=== PATIENT | female | born 1995 | race Caucasian/White ===

== ENCOUNTER 2016-08-26 22:35 | Emergency (ER) | payer BC ==
[~2016-08-26] VITALS: Ht 162.6 cm; Wt 54.4 kg
--- NOTE | 2016-08-26 22:50 | NUR ---
20 YO FEMALE BB FRIEND. PT IS ALERT X 4, C/O FLANK PAIN, PT AMBULATED TO ER BED, SKIN WARM AND DRY, RR EVEN AND UNLABORED. AWAITING ORDERS FROM PROVIDER
[2016-08-26] MEDS ORDERED: ACETAMINOPHEN ES 500 MG TABLET PO ONE (23:00)
[2016-08-26] MEDS ORDERED: ONDANSETRON HCL/PF 4 MG/2 ML VIAL IV ONE (23:00)
[2016-08-26] MEDS ORDERED: IV NS 0.9% 1,000 ML BAG IV ONE (23:00)
[2016-08-26] MEDS ORDERED: ONDANSETRON HCL/PF 4 MG/2 ML VIAL ONE (23:02)
[2016-08-26] MEDS ORDERED: IV SET PRIMARY 1 EA INFUS.SET MC ONE (23:02)
[2016-08-26] MEDS ORDERED: IV NS 0.9% 1,000 ML ONE (23:02)
[2016-08-26] MEDS ORDERED: ACETAMINOPHEN ES 500 MG TABLET ONE (23:02)
[2016-08-26] MEDS ORDERED: MORPHINE SULFATE INJ 2 MG/ML DISP.SYRIN ONE (23:18)
[2016-08-26] MEDS ORDERED: MORPHINE SULFATE INJ 4 MG/ML DISP.SYRIN ONE (23:18)
[2016-08-26 23:30] LABS: BASOPHILS % (AUTO) 0.1 % (0.0-2.0); HEMATOCRIT 39 % (33-45); HEMOGLOBIN 13.1 g/dL (11.5-14.8); LYMPHOCYTES # (AUTO) 0.4 /CMM (0.8-4.8); LYMPHOCYTES % (AUTO) 5.8 % (20.0-44.0); MEAN CORPUSCULAR HEMOGLOBIN 28 PG (26.0-33.0); MEAN CORPUSCULAR HGB CONC 34 g/dl (31.0-36.0); MEAN CORPUSCULAR VOLUME 85 fL (82-100); MONOCYTES # (AUTO) 0.7 /CMM (0.1-1.30); MONOCYTES % (AUTO) 10.6 % (2.0-12.0); NEUTROPHILS # (AUTO) 5.2 /CMM (1.8-8.9); NEUTROPHILS % (AUTO) 83.5 % (43.0-81.0); PLATELET COUNT (AUTO) 191 /CMM (150-450); RDW COEFFICIENT OF VARIATION 13.5 (11.5-15.0); RED BLOOD CELL COUNT(AUTO) 4.61 MIL/uL (4.0-5.2); WHITE BLOOD COUNT (AUTO) 6.2 K/uL (4.3-11.0)
[2016-08-26] MEDS ORDERED: MORPHINE SULFATE INJ 2 MG/ML DISP.SYRIN IV ONE (23:30)
--- NOTE | 2016-08-26 23:30 | NUR ---
20G LEFT AC IV STARTED. BLOOD SAMPLE OBTAINED AND SENT TO LAB
--- NOTE | 2016-08-26 23:35 | NUR ---
MEDICATED PT ORDERED
[2016-08-26 23:40] LABS: CALCIUM, SERUM 8.8 mg/dL (8.5-10.1); POTASSIUM 3.4 mmol/L (3.5-5.1)
[2016-08-26 23:40] LABS: BILIRUBIN,URINE NEGATIVE (NEGATIVE); BLOOD, URINE NEGATIVE Ery/uL (NEGATIVE); COLOR,URINE YELLOW (YELLOW); KETONES,URINE NEGATIVE (NEGATIVE); LEUKOCYTE ESTERASE ,URINE NEGATIVE (NEGATIVE); NITRITE, URINE NEGATIVE (NEGATIVE); PROTEIN,URINE NEGATIVE (NEGATIVE); UGLUCOSE NEGATIVE (NEGATIVE); UROBILINOGEN,URINE 0.2 EU/dL (0.2)
[2016-08-26 23:42] LABS: APPEARANCE,URINE CLEAR (CLEAR)
[2016-08-27] MEDS ORDERED: IV NS 0.9% 1,000 ML ONE (00:13)
[2016-08-27] MEDS ORDERED: IV SET PRIMARY 1 EA INFUS.SET MC ONE (00:13)
[2016-08-27] MEDS ORDERED: IV SET PRIMARY PUMP SET 1 EA INFUS.SET MC ONE (00:17)
[2016-08-27] MEDS ORDERED: LEVOFLOXACIN 750 MG /D5W 150ML 150 ML IV ONE (00:17)
[2016-08-27] MEDS ORDERED: IV NS 0.9% 250 ML IV ONE (00:27)
[2016-08-27] MEDS ORDERED: IOHEXOL-300 100 ML VIAL IV ONE (00:27)
[2016-08-27] MEDS ORDERED: IV NS 0.9% 1,000 ML BAG IV ONE (00:30)
[2016-08-27] MEDS ORDERED: LEVOFLOXACIN 750 MG /D5W 150ML PIGGYBACK IV ONE (00:30)
--- NOTE | 2016-08-27 00:30 | NUR ---
PT TRANPORTED TO CT VIA WHEEL CHAIR BY RADIOLOGY TEAM
--- NOTE | 2016-08-27 01:16 | NUR ---
PT RESTING IN ER BED, NAD NOTED, WILL CONTINUE TO MONITOR
[2016-08-27] MEDS ORDERED: ONDANSETRON 4 MG TAB.RAPDIS ONE (02:17)
--- NOTE | 2016-08-27 02:20 | NUR ---
IV removed. Catheter intact and site benign. Pressure and 4x4 applied to site. No bleeding noted.
--- NOTE | 2016-08-27 02:27 | NUR ---
PT AMBULATED TO ER RESTROOM, PT BECAME NAUSOUS/ HAD AN EPISODE OF EMISIS. MD NOTIFIED. ADMIN ZOFRAM SL 4MF PER VERBAL ORDER
[2016-08-27 02:32] VITALS: BP 119/84
--- NOTE | 2016-08-27 02:33 | NUR ---
Patient discharged to home in stable condition. Written and verbal after care instructions given. Patient verbalizes understanding of instruction.
[2016-08-27] MEDS ORDERED: ONDANSETRON 4 MG TAB.RAPDIS SL ONE (03:00)
== END 2016-08-27 02:34 | disposition home or self-care (01) ==
LOC: ER 22:35
DX: N12 Tubulo-interstitial nephritis, not specified as acute or chronic (principal); M32.9 Systemic lupus erythematosus, unspecified; M54.5 Low back pain; Z87.440 Personal history of urinary (tract) infections
CPT/HCPCS: 36415; 74160; 80048; 81001; 84703; 85025; 87086; 96361; 96365; 96375; 99285; A4606; J1956; J2270 ×2; J2405; J7030 ×2; J7050; Q0162; Q9967; Z7610; 81000-TC